=== PATIENT | female | born 1985 | race Caucasian/White ===

== ENCOUNTER 2019-12-12 09:59 | Outpatient (REF) | payer OTHER, SELFPAY ==
[2019-12-17 06:52] LABS: HPV mRNA E6/E7 Not Detected (Not Detected)
== END 2019-12-12 10:00 | disposition home or self-care (01) ==
LOC: HO.LNP 09:59
PROVIDERS: Visit Provider Obstetrics & Gynecology
DX: Z01.419 Encounter for gynecological examination (general) (routine) without abnormal findings (principal)
CPT/HCPCS: 87624; 87625; 88142

== ENCOUNTER → 2019-12-21 10:13 | Outpatient (BNVA) | payer OTHER, SELFPAY | PROVIDERS: Visit Provider Obstetrics & Gynecology | DX: Z30.46 Encounter for surveillance of implantable subdermal contraceptive (principal) | CPT/HCPCS: 11982 ==

== ENCOUNTER 2019-12-27 13:30 | Outpatient (REF) | payer OTHER, SELFPAY | END 2019-12-27 13:31 | disposition home or self-care (01) | LOC: HO.LAB 13:30 | PROVIDERS: Visit Provider Internal Medicine | DX: Z20.828 Contact with and (suspected) exposure to other viral communicable diseases (principal) | CPT/HCPCS: 87635 ==

== ENCOUNTER 2020-01-06 13:55 | Outpatient (REF) | payer OTHER, SELFPAY | END 2020-01-06 13:56 | disposition home or self-care (01) | LOC: HO.LAB 13:55 | PROVIDERS: Visit Provider Internal Medicine | DX: Z20.828 Contact with and (suspected) exposure to other viral communicable diseases (principal) | CPT/HCPCS: U0003 ==

== ENCOUNTER → 2020-05-29 15:12 | Outpatient (BNVA) | payer OTHER, SELFPAY | PROVIDERS: PCP Nurse Practitioner; Visit Provider Advanced Practice Midwife ==

== ENCOUNTER → 2020-09-03 10:46 | Outpatient (BNVA) | payer OTHER, SELFPAY | PROVIDERS: Visit Provider Advanced Practice Midwife ==

== ENCOUNTER 2020-12-24 10:19 | Outpatient (REF) | payer OTHER, SELFPAY ==
[2020-12-24 12:42] LABS: Syphilis Screen Nonreactive (Nonreactive)
[2020-12-25 03:27] LABS: CT PCR NOT DETECTED (Not Detect.); NG PCR NOT DETECTED (Not Detect.)
[2020-12-25 04:29] LABS: HIV AB/AG Nonreactive (Nonreactive); ~HepC Num1 0.07 S/CO (0.00-0.79); ~Hepatitis C Antibody Nonreactive (Nonreactive)
[2020-12-25 04:38] LABS: HBc Num1 0.11 S/CO (0.00-0.79); Hepatitis B Core Antibody Nonreactive (Nonreactive)
[2020-12-25 11:38] LABS: BV Int Neg Control Negative (Negative); BV Int Pos Control Positive (Positive)
== END 2020-12-24 10:20 | disposition home or self-care (01) ==
LOC: HO.LAB 10:19
PROVIDERS: Visit Provider Advanced Practice Midwife
DX: Z30.41 Encounter for surveillance of contraceptive pills (principal); N89.8 Other specified noninflammatory disorders of vagina; Z20.2 Contact with and (suspected) exposure to infections with a predominantly sexual mode of transmission
CPT/HCPCS: 36415; 86704; 86780; 86803; 87389; 87480; 87491; 87510; 87591; 87660

== ENCOUNTER → 2021-03-25 10:02 | Outpatient (BNVA) | payer OTHER, SELFPAY | PROVIDERS: Visit Provider Advanced Practice Midwife ==

== ENCOUNTER 2021-12-30 10:45 | Outpatient (REF) | payer OTHER, SELFPAY ==
[2021-12-30 13:53] LABS: CT PCR NOT DETECTED (Not Detect.); NG PCR NOT DETECTED (Not Detect.)
[2021-12-31 12:23] LABS: BV Int Neg Control Negative (Negative); BV Int Pos Control Positive (Positive)
== END 2021-12-30 10:46 | disposition home or self-care (01) ==
LOC: HO.LNP 10:45
PROVIDERS: Visit Provider Advanced Practice Midwife
DX: Z11.3 Encounter for screening for infections with a predominantly sexual mode of transmission (principal); Z11.8 Encounter for screening for other infectious and parasitic diseases
CPT/HCPCS: 87480; 87491; 87510; 87591; 87660

== ENCOUNTER → 2022-04-07 11:36 | Outpatient (BNVA) | payer OTHER, SELFPAY | PROVIDERS: Visit Provider Advanced Practice Midwife | DX: Z13.89 Encounter for screening for other disorder (principal) ==

== ENCOUNTER → 2022-06-25 08:25 | Outpatient (BNVA) | payer OTHER, SELFPAY | PROVIDERS: Visit Provider Advanced Practice Midwife | DX: Z13.89 Encounter for screening for other disorder (principal) ==

== ENCOUNTER 2023-03-06 14:30 | Outpatient (AMB) | payer OTHER, SELFPAY ==
[2023-03-06 14:51] VITALS: BP 120/70; BMI 25.7
--- NOTE | 2023-03-06 14:51 | A.OFFVIS_ITS ---
Intake Vital Signs 03/06/23 14:51 Height 5 ft 4 in Weight 150 lb BMI 25.7 BP 120/70 Intake Visit Reasons: [facility] APPRAISER annual exam Shank Paperer Required: No Information Interpreted: non-clinical & clinical Commissary Steward: Commissary Steward Present (Abeba Samson CARLOS) Accompanied by: Self / Same As Patient Allergies peanut Allergy (Severe, Verified 03/06/23 14:59) Difficulty Swallowing tree nut Allergy (Intermediate, Verified 03/06/23 14:59) Nausea apple [APPLES] Allergy (Unknown, Verified 03/06/23 14:59) ITCHY THROAT cassia [CASSIA] Allergy (Unknown, Verified 03/06/23 14:59) RASH shellfish derived Allergy (Unknown, Verified 03/06/23 14:59) Unknown DAIRY PRODUCTS Allergy (Unknown, Uncoded 03/06/23 14:59) DIARRHEA Is last menstrual period known: Yes Last menstrual period: 02/09/23 HPI HPI Comments History of Present Illness Details She is a premenopausal woman presenting for annual examination. Doing well with no concerns. She tries to eat healthy and stays active with exercise. Taking a multivitamin. She is open to a future . Has an October planned. Regular monthly menses. Currently is sexually active. She denies vaginal itching and irritation. STI screening offered; she declines. Denies family history of breast, ovarian or colon cancer. Last pap smear 2019, negative. 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 Sexual orientation: Straight/Heterosexual Gender identity: Female Female Reproductive History Menstrual Age of Menarche: 9 Date of last menstrual period: 02/09/23 control method: none Total pregnancies: 0 Date of last pap smear: 12/14/19 Review of Systems Const All systems reviewed & are unremarkable except as noted in HPI and below Reports as per HPI Eyes Reports no additional complaints ENT Reports no additional complaints Card Reports no additional complaints Resp Reports no additional complaints GI Reports as per HPI and Reports no additional complaints Reports as per HPI Musc Reports no additional complaints Skin/Breast Reports as per HPI Neuro Reports no additional complaints Psych Reports no additional complaints Endo Reports no additional complaints Gentry/Lymph Reports no additional complaints Aller/Immun Reports no additional complaints Physical Exam Vital Signs: Last Vital Signs BP 120/70 03/06/23 14:51 BMI result Body Mass Index 25.7 Const General: cooperative, healthy appearing, no acute distress, well developed and alert Orientation/consciousness: patient oriented x3 HEENT Head: Yes normal to inspection Eyes General: appearance normal, both eyes and all related structures Neck Neck: Yes normal visual inspection Thyroid: Thyroid normal Chest Chest palpation & inspection: normal inspection of the chest and other (no puckering, dimpling, peau de orange, retraction, discharge, masses) Breast/axilla inspection: normal inspection of the breasts Breast/axilla palpation: normal palpation of the breasts Resp Effort & Inspection: normal respiratory effort GI Inspection: Yes normal to inspection Palpation (GI): Soft to palpation Rectal Exam - Female: deferred General: Yes bladder normal to palpation External Female Exam: normal external appearance and normal appearance of the urethra Speculum Exam - Vagina: normal appearance of the vagina, normal palpation, normal vaginal discharge, abnormal vaginal discharge and vaginal bleeding (Small amount) Speculum Exam - Cervix: normal appearance of the cervix and normal palpation Bimanual exam- vagina & uterus: normal bimanual exam, normal palpation, uterine size normal, bladder normal to palpation, normal palpation and non-tender Bimanual Exam- Adnexa, other: no masses OB/external & speculum: vaginal bleeding (Small amount) Skin General skin exam: no rashes or lesions noted Rashes: no rashes Neuro General: patient oriented x3 Cognition (Neuro): normal cognition Extrem General: Yes normal to inspection Psych Attitude: cooperative Thought process: Normal thought process present Assessment & Plan Assessment & Plan (1) Encounter for well woman exam with routine gynecological exam: Code(s): Z01.419 - Encounter for gynecological examination (general) (routine) without abnormal findings Plan Discussed: Current recommendations for pap smears per ASCCP guidelines. Breast awareness and periodic breast exams. Maintain a healthy lifestyle including a well balanced diet and routine exercise. Continue with multivitamins for the benefit of folic acid. If missed menses do a home test and follow-up in the office for care. All of her questions and concerns were addressed to the best of my ability. RTO in one year for annual irrigator gravity flow examination. This note is constructed using voice recognition software. While every effort has been made to ensure accuracy, optometric tech errors may have been included. Coding Level of Care Code Est Pt Prev Care 18-39y(30331) Diagnoses Encounter for well woman exam with routine gynecological exam Z01.419
== END 2023-03-06 15:24 | disposition home or self-care (01) ==
LOC: HO.HWS 14:30
PROVIDERS: Visit Provider Advanced Practice Midwife
DX: Z01.419 Encounter for gynecological examination (general) (routine) without abnormal findings (principal)
CPT/HCPCS: 99395

== ENCOUNTER → 2023-03-06 14:30 | Outpatient (BNVA) | payer OTHER, SELFPAY | PROVIDERS: Visit Provider Advanced Practice Midwife ==

== ENCOUNTER 2024-07-28 14:03 | Outpatient (AMB) | payer OTHER, SELFPAY ==
--- NOTE | 2024-07-28 14:07 | A.OFFVIS_ITS ---
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 Casting Machine Tender Required: No Allergies peanut Allergy (Severe, Verified 07/28/24 14:11) Difficulty Swallowing tree nut Allergy (Intermediate, Verified 07/28/24 14:11) Nausea apple [APPLES] Allergy (Unknown, Verified 07/28/24 14:11) ITCHY THROAT cassia [CASSIA] Allergy (Unknown, Verified 07/28/24 14:11) RASH shellfish derived Allergy (Unknown, Verified 07/28/24 14:11) Unknown DAIRY PRODUCTS Allergy (Unknown, Uncoded 07/28/24 14:11) DIARRHEA Medication List - Last Reconciled 07/28/24 by Jennifer Guido LPN dextroamphetamine-amphetamine 20 mg (Adderall) 20 mg PO DAILY fluoxetine 30 mg PO DAILY trazodone 25 mg PO DAILY Is last menstrual period known: Yes Last menstrual period: 07/14/24 Post menopausal: No Patient : No Do you need a note to return to daycare/school/sports/work: No HPI Comments Details: She is a premenopausal woman presenting for annual examination. Doing well with artist blacksmith concerns: She desires STDs testing, vaginal burning at introitus, hx. of IC. Regular monthly menses. Currently is sexually active, new partner, using withdrawal method. Desires to restart her control. History of white coat syndrome. Prefers not to have menses and wants to have continuous cycling p ack. She denies any contraindications to control such as: migraines with aura, history of DVT or pulmonary emboli, high blood pressure, liver disease, thrombolic disorders, Lupus, +EZEQUIEL, breast cancer, or smoking. She tries to eat healthy, admits to having a sweet tooth, no regular exercise. Denies family history of ovarian or colon cancer. FH breast cancer-mother, BRCA negative. Last pap smear 2019, negative. 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 Sexual orientation: Straight/Heterosexual Gender identity: Female Female Reproductive History Menstrual Age of Menarche: 9 Duration of menses: 3-5 days Date of last menstrual period: 07/14/24 control method: none Total pregnancies: 0 Date of last pap smear: 12/12/19 History of abnormal pap smear: Yes (2001 ASCUS/ pos HPV) History of STI: Yes (HPV) Review of Systems Const All systems reviewed & are unremarkable except as noted in HPI and below Reports as per HPI Eyes Reports no additional complaints ENT Reports no additional complaints Card Reports no additional complaints Resp Reports no additional complaints GI Reports as per HPI and Reports no additional complaints Reports as per HPI Musc Reports no additional complaints Skin/Breast Reports as per HPI Neuro Reports no additional complaints Psych Reports no additional complaints Endo Reports no additional complaints Gentry/Lymph Reports no additional complaints Aller/Immun Reports no additional complaints Physical Exam Vital Signs: Last Vital Signs BP 126/66 07/28/24 14:08 BMI result Body Mass Index 23.1 Const General: cooperative, healthy appearing, no acute distress, well developed and alert Orientation/consciousness: patient oriented x3 HEENT Head: Yes normal to inspection Eyes General: appearance normal, both eyes and all related structures Neck Neck: Yes normal visual inspection Thyroid: Thyroid normal Chest Chest palpation & inspection: normal inspection of the chest and other (no pucke ring, dimpling, peau de orange, retraction, discharge, masses) Breast/axilla inspection: normal inspection of the breasts Breast/axilla palpation: normal palpation of the breasts Resp Effort & Inspection: normal respiratory effort GI Inspection: Yes normal to inspection Palpation (GI): Soft to palpation Rectal Exam - Female: deferred General: Yes bladder normal to palpation External Female Exam: normal external appearance and normal appearance of the urethra Speculum Exam - Vagina: normal appearance of the vagina, normal palpation and normal vaginal discharge Speculum Exam - Cervix: normal appearance of the cervix, normal palpation and Other cervical findings present (Bled slightly with Pap) Bimanual exam- vagina & uterus: normal bimanual exam, normal palpation, uterine size normal, bladder normal to palpation, normal palpation and non-tender Bimanual Exam- Adnexa, other: no masses Skin General skin exam: no rashes or lesions noted Rashes: no rashes Neuro General: patient oriented x3 Cognition (Neuro): normal cognition Extrem General: Yes normal to inspection Psych Attitude: cooperative Thought process: Normal thought process present Assessment & Plan Assessment & Plan (1) control counseling: Code(s): Z30.09 - Encounter for other general counseling and advice on contraception Category: Medical Plan: control hormone use warnings: go to ER if and loss of vision, blindness, severe headache, chest pain or difficulty breathing, severe abdominal pain, or any pain or swelling in an extremity. Counseled on restarting control pills, use, timing, with food, report any GI upset or allergies. Talk with pharmacy regarding concerns with allergies. Home monitoring with blood pressure cuff due to history of white coat syndrome, advised to bring in recordings at her next visit. The patient expressed understanding and agreement with the plan of care. All of her questions and concerns were addressed to the best of my ability. Recheck BP in 2-1/2 months once starting pill. (2) Encounter for routine gynecological examination with Papanicolaou smear of cervix: Code(s): Z01.419 - Encounter for gynecological examination (general) (routine) without abnormal findings Category: Medical Plan Discussed: Current recommendations for pap smears per ASCCP guidelines. Pap smear, GC chlamydia and BV panel obtained await results for plan of care. Breast awareness and periodic breast exams. Mammogram ordered. Maintain a healthy lifestyle including a well balanced diet and routine exercise. Patient verbalizes understanding and agrees to the plan of care. She was given opportunity to ask questions and all questions were answered to the best of my ability. RTO in one year for annual artist blacksmith examination. This note is constructed using voice recognition software. While every effort has been made to ensure accuracy, laborer poultry hatchery errors may have been included. Orders: Orders Pap Smear Today Z01.419 - Encounter for gynecological examination (general) (routine) without abnormal findings CT NG by PCR Today Z11.3 - Encounter for screening for infections with a pred ominantly sexual mode of transmission HIV Ab/Ag Today Z20.2 - Contact with and (suspected) exposure to infections with a predominantly sexual mode of transmission MM tomosynthesis screening BI 12/05/24 Z12.31 - Encounter for screening mammogram for malignant neoplasm of breast Bacterial Vaginosis Panel Today Z11.3 - Encounter for screening for infections with a predominantly sexual mode of transmission Hepatitis C Antibody Reflex Today Z20.2 - Contact with and (suspected) exposure to infections with a predominantly sexual mode of transmission Hepatitis B Core Antibody Today Z20.2 - Contact with and (suspected) exposure to infections with a predominantly sexual mode of transmission Syphilis Screen Today Z20.2 - Contact with and (suspected) exposure to infections with a predominantly sexual mode of transmission Medications: New levonorgestrel-ethinyl estrad 0.15 mg-30 mcg (91) (Swapnaa) 1 tab PO DAILY 91 ea 0RF Coding Level of Care Code Est Pt Prev Care 18-39y(50714) Diagnoses control counseling Z30.09 Encounter for routine gynecological examination with Papanicolaou smear of cervix Z01.419
[2024-07-28 14:08] VITALS: BP 126/66; BMI 23.1
== END 2024-07-28 15:03 | disposition home or self-care (01) ==
LOC: HO.HWS 14:03
PROVIDERS: Visit Provider Advanced Practice Midwife
DX: Z01.419 Encounter for gynecological examination (general) (routine) without abnormal findings (principal)
CPT/HCPCS: 99395; 99459

== ENCOUNTER 2024-07-28 14:03 | Outpatient (REF) | payer OTHER, SELFPAY ==
[2024-07-29 03:50] LABS: Syphilis Screen Nonreactive (Nonreactive)
[2024-07-29 03:53] LABS: HBc Num1 0.13 S/CO (0.00-0.79); HIV AB/AG Nonreactive (Nonreactive); HIV Num 1 0.06 S/CO (0.00-0.99); Hepatitis B Core Antibody Nonreactive (Nonreactive); ~HepC Num1 0.09 S/CO (0.00-0.79); ~Hepatitis C Antibody Nonreactive (Nonreactive)
[2024-07-29 04:09] LABS: CT PCR NOT DETECTED (Not Detect.); NG PCR NOT DETECTED (Not Detect.)
[2024-07-29 11:29] LABS: Bacterial Vaginosis PCR NEGATIVE (Negative); Candida Group PCR NOT DETECTED (Not Detect); Candida glab krusei PCR NOT DETECTED (Not Detect); Trichomonas vaginalis PCR NOT DETECTED (Not Detect)
[2024-08-03 14:43] LABS: HPV Genotype 16 Positive (Negative); HPV Genotype 18 Negative (Negative); HPV High Risk Positive (Negative)
== END 2024-07-28 14:04 | disposition home or self-care (01) ==
LOC: HO.LNP 14:03
PROVIDERS: Visit Provider Advanced Practice Midwife
DX: Z01.419 Encounter for gynecological examination (general) (routine) without abnormal findings (principal); Z20.2 Contact with and (suspected) exposure to infections with a predominantly sexual mode of transmission
CPT/HCPCS: 81515; 86704; 86780; 86803; 87389; 87491; 87591; 87626; 88175

== ENCOUNTER 2024-07-28 14:58 | Outpatient (REF) | payer OTHER, SELFPAY | END 2024-07-28 14:59 | disposition home or self-care (01) | LOC: HO.LAB 14:58 | PROVIDERS: Visit Provider Advanced Practice Midwife | DX: Z13.89 Encounter for screening for other disorder (principal) ==

== ENCOUNTER 2024-08-11 15:00 | Outpatient (AMB) | payer OTHER, SELFPAY ==
[2024-08-11 15:12] VITALS: BP 126/64; BMI 22.7
--- NOTE | 2024-08-11 15:12 | MHC.OFFVIS ---
Vital Signs 08/11/24 15:12 Height 5 ft 4 in Weight 132 lb BMI 22.7 BP 126/64 Intake Visit Reasons: Colposcopy Allergies peanut Allergy (Severe, Verified 07/28/24 14:11) Difficulty Swallowing tree nut Allergy (Intermediate, Verified 07/28/24 14:11) Nausea apple [APPLES] Allergy (Unknown, Verified 07/28/24 14:11) ITCHY THROAT cassia [CASSIA] Allergy (Unknown, Verified 07/28/24 14:11) RASH shellfish derived Allergy (Unknown, Verified 07/28/24 14:11) Unknown DAIRY PRODUCTS Allergy (Unknown, Uncoded 07/28/24 14:11) DIARRHEA HPI Comments Details: Presenting with abnormal cervical screening showing the following: Unsatisfactory. Unsatisfactory for evaluation, specimen processed and examined (following reprocessing with acid wash procedure), but unsatisfactory for evaluation of epithelial abnormality because of scant squamous epithelial component. 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 Sexual orientation: Straight/Heterosexual Gender identity: Female Female Reproductive History Menstrual Age of Menarche: 9 Review of Systems Const All systems reviewed & are unremarkable except as noted in HPI and below Reports as per HPI and Reports no additional complaints GI Reports no additional complaints Reports no additional complaints Physical Exam Vital Signs: Last Vital Signs BP 126/64 08/11/24 15:12 BMI result Body Mass Index 22.7 Office Procedures Colposcopy Colposcopy: Pre-Procedure Counseling: Before beginning the procedure, I conducted comprehensive counseling with the patient. We thoroughly discussed the procedure itself, including its details, alternatives, and all associated risks. This included but not limited to the following complications such as bleeding, infection, and injury to the vagina, bladder, and vessels, as well as the potential need for transfusion with all its associated risks. Subsequently, the patient sign the consent. Pap smear result: LSIL. Urine test in office = Negative Procedure: During the procedure, the following steps were performed: A speculum was inserted, and acetic acid was applied. Colposcopy was conducted, allowing visualization of the transformation zone. Acetowhite lesions were identified at the 12+ 6+ 3 o'clock position. Cervical biopsies were obtained from the 12+6+3 o'clock position, followed by an endocervical curettage (ECC). Vaginoscopy of the upper vagina revealed no evidence of aceto-white lesions. Hemostasis was achieved using Monsel solution, and the patient tolerated the procedure well. Post-Procedure Instructions: The patient was advised to promptly contact the office or the after hours answering service or go to the emergency room if experiencing a temperature exceeding 100.4?F, abdominal pain, nausea/vomiting, or bleeding. Additionally, the patient was instructed to abstain from vaginal intercourse and bathtub use. The patient confirmed understanding of these instructions. Discharge Instructions: The patient was instructed to schedule a follow-up appointment in 2 weeks for further evaluation and management. Please note that this note was generated using a voice recognition program, and errors may have occurred during gas generator operator. [id number] of cervix including upper vagina with biopsy and ECC Procedure code (CPT) selection complete Results AMB Test Urine AMB Test Urine Negative Last Edit by Abeba Samson CMA on 08/11/24 15:31 Results Reviewed Results Reviewed: Laboratory Last Values [facility] Clinic Negative 08/11/24 15:30 Assessment & Plan Assessment & Plan (1) Unsatisfactory cervical Papanicolaou smear: Code(s): R87.615 - Unsatisfactory cytologic smear of cervix Category: Medical Plan: Pap smear repeated (2) Human papillomavirus (HPV) type 16 DNA detected in cervical specimen: Code(s): R87.810 - Cervical high risk human papillomavirus (HPV) DNA test positive Category: Medical Plan: Discussed with the patient the result of HPV 16 positive, its significance, risk of progression, persistence, and regression. the false positive/negative rate of a Pap smear as a screening test in detecting cervical cancer and the indication for a diagnostic test -colposcopy, biopsy, endocervical curettage. The patient verbalized understanding and agreed with the plan, all questions answered. Colposcopy, biopsy /ECC done, see procedure note Orders: Orders AMB Colposcopy Today R87.810 - Cervical high risk human papillomavirus (HPV) DNA test positive AMB HCG Urine Test Today Z32.02 - Encounter for test, result negative Coding Level of Care Code Procedure Only Diagnoses Unsatisfactory cervical Papanicolaou smear R87.615 Human papillomavirus (HPV) type 16 DNA detected in cervical specimen R87.810 CPT Codes Colposcopy - CPT: 62482-[id number] of cervix including upper vagina with biopsy and ECC ([id number])
== END 2024-08-11 15:47 | disposition home or self-care (01) ==
LOC: HO.HWS 15:01
PROVIDERS: Visit Provider Obstetrics & Gynecology
DX: R87.615 Unsatisfactory cytologic smear of cervix (principal); R87.810 Cervical high risk human papillomavirus (HPV) DNA test positive; Z32.02 Encounter for pregnancy test, result negative
CPT/HCPCS: 57454

== ENCOUNTER 2024-08-11 15:00 | Outpatient (REF) | payer OTHER, SELFPAY | END 2024-08-11 15:01 | disposition home or self-care (01) | LOC: HO.LNP 15:00 | PROVIDERS: Visit Provider Obstetrics & Gynecology | DX: R87.615 Unsatisfactory cytologic smear of cervix (principal); R87.810 Cervical high risk human papillomavirus (HPV) DNA test positive | CPT/HCPCS: 57454; 81025; 88175; 88305 ==

== ENCOUNTER 2024-10-04 12:41 | Outpatient (AMB) | payer OTHER, SELFPAY ==
--- NOTE | 2024-10-04 12:50 | MHC.OFFVIS ---
Vital Signs 10/04/24 12:52 Height 5 ft 4 in Weight 144 lb BMI 24.7 BP 124/76 Blood Pressure Location Rt brachial Position Sitting Intake Visit Reasons: 2 month pill check Information Interpreted: non-clinical & clinical Mds Coordinator: Mds Coordinator Present Accompanied by: Self / Same As Patient Allergies peanut Allergy (Severe, Verified 10/04/24 12:55) Difficulty Swallowing tree nut Allergy (Intermediate, Verified 10/04/24 12:55) Nausea apple (APPLES) Allergy (Unknown, Verified 10/04/24 12:55) ITCHY THROAT cassia (CASSIA) Allergy (Unknown, Verified 10/04/24 12:55) RASH shellfish derived Allergy (Unknown, Verified 10/04/24 12:55) Unknown DAIRY PRODUCTS Allergy (Unknown, Uncoded 10/04/24 12:55) DIARRHEA Medication List - Last Reconciled 10/04/24 by Evelina Ogden LPN dextroamphetamine-amphetamine 20 mg (Adderall) 20 mg PO DAILY fluoxetine 30 mg PO DAILY levonorgestrel-ethinyl estrad 0.15 mg-30 mcg (91) (Jolessa) 1 tab PO DAILY trazodone 25 mg PO DAILY Is last menstrual period known: Yes (started bleeding 09/23 till today 10/04) Last menstrual period: 09/23/24 Post menopausal: No Patient : No HPI Comments Details: Patient is here today for her pill check she reports an episode of 11 days of breakthrough bleeding, denies any missed or late pills or other illnesses, new medication. She reports having to wait for her colposcopy results in the fall from her August appointment and would like a results today. History of unsatisfactory Pap, repeat Pap was negative same-day biopsies revealed MELLY 1. History of positive HPV. She denies any contraindications to control such as: migraines with aura, history of DVT or pulmonary emboli, high blood pressure, liver disease, thrombolic disorders, Lupus, +EZEQUIEL, breast cancer, or smoking. 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 Sexual orientation: Straight/Heterosexual Gender identity: Female Female Reproductive History Menstrual Age of Menarche: 9 Date of last menstrual period: 09/23/24 control method: pills Total pregnancies: 0 Number of Living Children: 0 Review of Systems Const All systems reviewed & are unremarkable except as noted in HPI and below Endo Reports no additional complaints Physical Exam Vital Signs: Last Vital Signs BP 124/76 10/04/24 12:52 BMI result Body Mass Index 24.7 Const General: cooperative, healthy appearing and no acute distress Psych Appearance: well kempt Attitude: cooperative Thought process: Normal thought process present Results AMB Test Urine AMB Test Urine Negative Last Edit by Evelina Ogden LPN on 10/04/24 13:02 Results Reviewed Results Reviewed: Laboratory Last Values Tst Clinic Negative 10/04/24 13:01 Surgical Pathology [id number] Name: Mayelin Camargo Age/Sex: 38/F Attending: Sergey Barragan MD : 1985 Submitted by: Sergey Barragan MD Copies to: MR #: [id number] Status: DEP REF Collected: 08/11/24 Location: [facility] Received: 08/12/24 Diagnosis A. Endocervix, curettage: - Low-grade squamous intraepithelial lesion (MELLY 1). - Endocervical epithelium within normal limits. B. Cervix, 3 o'clock, biopsy: - Low-grade squamous intraepithelial lesion (MELLY 1). - Endocervical epithelium within normal limits. C. Cervix, 6 o'clock, biopsy: - Low-grade squamous intraepithelial lesion (MELLY 1). - Endocervical epithelium within normal limits. D. Cervix, 12 o'clock, biopsy: - Low-grade squamous intraepithelial lesion (MELLY 1). - Endocervical epithelium within normal limits. COMMENT: The patient's current Pap is pending at the time of this report. Clinical History HPV in female, HPV type 16 DNA detected in cervical specimen, unsatisfactory cervical Papanicolaou smear Microscopic Description A-D. Microscopic sections reviewed. Material Received A. ECC B. Cx bx 3 o'clock C. Cx bx 6 o'clock D. Cx bx 12 o'clock Gross Description Received in 4 parts. A. Received in formalin labeled ?ECC? are minute fragments of almanza-white soft tissue and mucus forming an aggregate measuring 0.5 x 0.5 x 0.1 cm which is wrapped in lens paper and entirely submitted for microscopic examination, multiple pieces in cassette A. Patient: Mayelin Camargo Age/Sex: 38/F MR#: [id number] Page 1 of 2 Surgical Pathology [id number] B. Received in formalin labeled ?CX Bx 3? is a fragment of rubbery, white tissue measuring 0.6 cm in greatest dimension which is wrapped in lens paper and entirely submitted for microscopic examination, 1 piece in cassette B. C. Received in formalin labeled ?CX Bx 6? are 2 fragments of rubbery, white tissue measuring 0.3 and 0.3 cm in greatest dimension which are wrapped in lens paper and entirely submitted for microscopic examination, 2 pieces in cassette C. D. Received in formalin labeled ?CX Bx 12? is a fragment of rubbery, almanza-white tissue measuring 0.6 cm in greatest dimension which is wrapped in lens paper and entirely submitted for microscopic examination, 1 piece in cassette D. ([facility]) NOTE: Unless otherwise stated, all tissue is formalin-fixed and paraffin-embedded. Some or all of the immunohistochemical tests reported herein may have been developed and their performance characteristics determined by [facility]. They have not been cleared or approved by the U.S. Food and Drug Administration (FDA). However, the FDA has determined that such clearance or approval is not necessary. This laboratory is certified under the Clinical Laboratory Improvement Amendments of 1988 (CLIA) as qualified to perform high complexity clinical laboratory testing. Electronically Signed By: Alexis Bagley MD 08/15/24 0153 Patient: Mayelin Camargo Age/Sex: 38/F MR#: [id number] Page 2 of 2 Assessment & Plan Assessment & Plan (1) Surveillance for control, oral contraceptives: Code(s): Z30.41 - Encounter for surveillance of contraceptive pills Plan: Continue with OCPs report back to office if continues to have breakthrough bleeding. This can be common with the extended pill packs. UPT is negative today. Repeat if indicated. control hormone use warnings: go to ER if and loss of vision, blindness, severe headache, chest pain or difficulty breathing, severe abdominal pain, or any pain or swelling in an extremity. Rx for control sent in. Mammogram is scheduled for December 2024. The patient expressed understanding and agreement with the plan of care. All of her questions and concerns were addressed to the best of my ability. (2) Encounter to discuss test results: Code(s): Z71.2 - Person consulting for explanation of examination or test findings Plan Discussed colposcopy results per patient's request. MELLY 1 present on all biopsies, discussed progression and regression of HPV changes indicated with abnormal cellular findings. Plan repeat Pap at next annual exam July 2024. The patient expressed understanding and agreement with the plan of care. All of her questions and concerns were addressed to the best of my ability. This note is constructed using voice recognition software. While every effort has been made to ensure accuracy, college sports coach errors may have been included. Orders: Orders AMB HCG Urine Test Today Z32.02 - Encounter for test, result negative Medications: Refilled levonorgestrel-ethinyl estrad 0.15 mg-30 mcg (91) (Tamanna) 1 tab PO DAILY 91 ea 3RF Coding Level of Care Code Est Pt Level 3 (82583) Diagnoses Surveillance for control, oral contraceptives Z30.41 Encounter to discuss test results Z71.2
[2024-10-04 12:52] VITALS: BP 124/76; BMI 24.7
--- OUTSIDE RECORDS SUMMARY | 2024-10-04 13:26 | XMS_ITS | Clinical Summary ---
Author Organization [facility] Address [address] [place] [address] Phone Care Team Providers Care News Department Intern Name Role Phone Goldie Heaton NP Primary Care Provider [phone] Allergies Active Allergy Reactions Criticality Noted Date Comments Apple 07/07/2021 Nlvklcw-Sicrcrp-Tyyfp-Ritika 07/07 Lavender 07/07/2021 Peanut 06/11/2023 Tree Nut 07/07/2021 Medications FLUoxetine (PROZAC) 20 MG capsule Take 30 mg by mouth daily. Active traZODone (DESYREL) 50 MG tablet Take 50 mg by mouth nightly at bedtime. Active buPROPion (WELLBUTRIN SR) 100 MG SR 12 hr tablet 03/10/2023 Active pentosan polysulfate (ELMIRON) 100 mg capsule Take 100 mg by mouth 3 (three) times a day before meals. Active Active Problems No known active problems Social History Tobacco Use Types Packs/Day Years Used Date Smoking Tobacco: Never Passive Smoke Exposure: Never Smokeless Tobacco: Never Tobacco Cessation:Counseling Given: Not Answered Alcohol Use Standard Drinks/Week Comments Not Currently 0 (1 standard drink = 0.6 oz pur e alcohol) Education Answer Date Recorded Are you interested in more education? Not on cary e 07/04/2022 Are you concerned about learning? Not on file 07/04/2022 No 07/04/2022 No 07/04/2022 Digital Access Answer Date Recorded No 08/04/2022 No 08/04/2022 Reliable internet access at home? Not on file 08/04/2022 Device with a working camera? Not on file Intimate Partner Violence Answer Date R ecorded Are you denied basic needs s uch as food, clothing, or medical care? No 06/11/2023 In the past 12 months have y ou been in a relationship with a person who hurts, threatens, or tries to control you? No 06/11/2023 Are you denied basic needs s uch as food, clothing, or medical care? No 06/11/2023 In the past 12 months have y ou been in a relationship with a person who hurts, threatens, or tries to control you? No 06/11/2023 Comments Unknown Sex and Gender Information Value Date Recorded Sex Assigned at Female 07/07/2021 10:52 AM EDT Legal Sex Female 9:14 PM EDT Gender Identity Female 07/07/2021 10:52 AM EDT Sexual Orientation Not on file Last Filed Vital Signs Vital Sign Reading Time Taken Comments Blood Pressure 126/82 06/11/2023 9:52 PM EDT Pulse 78 06/11/2023 9:52 PM EDT Temperature 36.8 C (98.3 F) 06/11/2023 9:52 PM EDT Respiratory Rate 18 06/11/2023 9:52 PM EDT Oxygen Saturation 100% 06/11/2023 9:52 PM EDT Inhaled Oxygen Concentration - - Weight 63.5 kg (140 lb) 09/04/2021 8:15 AM EDT Height 162.6 cm (5' 4 ) 09/04/2021 8:15 AM EDT Body Mass Index 24.03 09/04/2021 8:15 AM EDT Plan of Treatment Health Maintenance Due Date Last Done Comments DEPRESSION SCREENING 1996 HEPATITIS C SCREENING 2002 HIV ONE-TIME SCREENING (18-6 5 YEARS) 2002 PAP SMEAR 2005 COVID-19 VACCINE (2023-2 5 season) 2023 10/27/2020 Adult Td,Tdap Booster 10/21/2025 10/22/2015 SMOKING STATUS SCREENING (On ce After 26 Yrs) Completed 06/11/2023 HEPATITIS A VACCINES Aged Out No long er eligible based on patient's age to complete this topic HIB VACCINES Aged Out No longer eligi ble based on patient's age to complete this topic MENINGOCOCCAL VACCINES (ACWY) Aged Out No longer eligible based on patient's age to complete this topic MENINGOCOCCAL VACCINES (B) Aged Out N o longer eligible based on patient's age to complete this topic PNEUMOCOCCAL VACCINES (0-49 years) Aged Out No longer eligible based on patient's age to complete this topic Medical Devices Not on file Insurance [address] [place], [place] [address] [place] [address] [facility] [address] [place] [address] [place] [address] [facility] [place] [address] [place] [id number] Care Teams News Department Intern Relationship Specialty Start Date End Date Goldie Heaton NP [address] [place] [id number] [email or web address] acquired by [email or web address] PCP - General 05/15/20 Additional Source Comments The information contained in this document represents components of the legal health record. It is not the complete legal health record.[facility]
--- OUTSIDE RECORDS SUMMARY | 2024-10-04 13:26 | XMS_ITS | Patient Health Record ---
Author Organization [facility] Address [address] [place] [id number] Care Team Providers Care Track Subway Repair Supervisor Name Role Phone Chase Guerrero Unavailable [phone] Reason For Referral No Information Plan Of Treatment No Information
== END 2024-10-04 13:48 | disposition home or self-care (01) ==
LOC: HO.HWS 12:42
PROVIDERS: Visit Provider Advanced Practice Midwife
DX: Z30.41 Encounter for surveillance of contraceptive pills (principal); Z71.2 Person consulting for explanation of examination or test findings; Z32.02 Encounter for pregnancy test, result negative
CPT/HCPCS: 99213

== ENCOUNTER → 2024-10-04 12:41 | Outpatient (BNVA) | payer OTHER, SELFPAY | PROVIDERS: Visit Provider Advanced Practice Midwife | DX: Z32.02 Encounter for pregnancy test, result negative (principal) | CPT/HCPCS: 81025 ==

== ENCOUNTER 2024-12-17 10:13 | Outpatient (REF) | payer OTHER, SELFPAY ==
--- OUTSIDE RECORDS SUMMARY | 2024-12-17 10:16 | XMS_ITS | Patient Health Record ---
Author Organization [facility] Address [address] [place] [phone] Care Team Providers Care Faculty Physician Name Role Phone Chase Guerrero Unavailable [phone] Reason For Referral No Information Plan Of Treatment No Information
--- OUTSIDE RECORDS SUMMARY | 2024-12-17 10:16 | XMS_ITS | Clinical Summary ---
Author Organization [facility] Address [address] [place] [address] Phone Care Team Providers Care Chenille Machine Operator Name Role Phone JobMarymari Cortés LOADER HELPER SORTING YARD Primary Care Provider [phone] Allergies Active Allergy Reactions Criticality Noted Date Comments Apple 07/07/2021 Vuyftjj-Utufeso-Ctdun-Ritika 07/07 Lavender 07/07/2021 Peanut 06/11/2023 Tree Nut [...] Active Active Problems No known active problems Encounters Date Type Department Care Team Description 11/28/2024 2:15 AM EDT - 11/28/2024 4:56 AM EDT Emergency [facility] [address] [place] [address] Travis Cui, DO Discharge Disposition: Home or Self Care from Last 3 Months Social History Tobacco Use Types Packs/Day Years [...] as food, clothing, or medical care? No 11/27/2024 In the past 12 months have y ou been in a relationship with a person who hurts, threatens, or tries to control you? No 11/27/2024 Are you denied basic needs s uch as food, clothing, or medical care? No 11/27/2024 In the past 12 months have y ou been in a relationship with a person who hurts, threatens, or tries to control you? No 11/27/2024 Comments Unknown Sex and Gender Information Value Date Recorded Sex Assigned at Female 07/07/2021 10:52 AM EDT Legal Sex Female 9:14 PM EDT Gender Identity Female 07/07/2021 10:52 AM EDT Sexual Orientation Don't know 11/28/2024 2: 27 AM EDT Last Filed Vital Signs Vital Sign Reading Time Taken Comments Blood Pressure 141/86 11/28/2024 4:15 AM EDT Pulse 69 11/27/2024 11:54 PM EDT Temperature 37.1 C (98.8 F) 11/28/2024 4:15 AM EDT Respiratory Rate 16 11/27/2024 11:54 PM EDT Oxygen Saturation 100% 11/28/2024 4:15 AM EDT Inhaled Oxygen Concentration - - Weight 63.5 kg (140 lb) 11/27/2024 11:54 PM EDT Height 162.6 cm (5' 4 ) 11/27/2024 11:54 PM EDT Body Mass Index 24.03 11/27/2024 11:54 PM EDT Plan of Treatment Health Maintenance Due Date Last Done Comments DEPRESSION SCREENING 1996 HEPATITIS C SCREENING 2002 HIV ONE-TIME SCREENING (18-6 5 YEARS) 2002 PAP SMEAR 2005 INFLUENZA VACCINE (#1) 2024 COVID-19 VACCINE (2024-2 6 season) 2024 10/27/2020 MAMMOGRAM 2024 Adult Td,Tdap Booster 10/21/2025 10/22/2015 SMOKING STATUS SCREENING (On ce After 26 Yrs) Completed 11/27/2024 HEPATITIS A VACCINES Aged Out No long [...] topic Medical Devices Not on file Insurance ([place]) [address] [facility] [place], [place] [address] [facility] [place] [place] [address] [place] [address] [facility] H[facility] INSURANCE Care Teams Chenille Machine Operator Relationship Specialty Start Date End Date Maria Fernanda Kiaser NP [address] [place] [address] PCP - General Nurse Practitioner 11/27/24 Additional Source Comments The information contained in this document represents components of the legal health record. It is not the complete legal health record.[facility]
== END 2024-12-17 10:14 | disposition home or self-care (01) ==
LOC: HO.MAMMO 10:13
PROVIDERS: Visit Provider Advanced Practice Midwife
DX: Z12.31 Encounter for screening mammogram for malignant neoplasm of breast (principal)
CPT/HCPCS: 77063; 77067

== ENCOUNTER → 2024-12-17 10:15 | Outpatient (BNV) | payer OTHER, SELFPAY | PROVIDERS: Visit Provider Radiology Body Imaging | DX: Z12.31 Encounter for screening mammogram for malignant neoplasm of breast (principal) | CPT/HCPCS: 77063; 77067 ==

== ENCOUNTER 2025-01-27 11:34 | Outpatient (AMB) | payer OTHER, SELFPAY ==
--- NOTE | 2025-01-27 11:46 | MHC.OFFVIS ---
Intake Visit Reasons: follow up Allergies peanut Allergy (Severe, Verified 01/27/25 11:51) Difficulty Swallowing tree nut Allergy (Intermediate, Verified 01/27/25 11:51) Nausea apple (APPLES) Allergy (Unknown, Verified 01/27/25 11:51) ITCHY THROAT cassia (CASSIA) Allergy (Unknown, Verified 01/27/25 11:51) RASH shellfish derived Allergy (Unknown, Verified 01/27/25 11:51) Unknown DAIRY PRODUCTS Allergy (Unknown, Uncoded 01/27/25 11:51) DIARRHEA Medication List - Last Reconciled 01/27/25 by Jovana Vigil CNP dextroamphetamine-amphetamine 20 mg (Adderall) 20 mg PO DAILY fluoxetine 30 mg PO DAILY levonorgestrel-ethinyl estrad 0.15 mg-30 mcg (91) (Jolessa) 1 tab PO DAILY sumatriptan succinate take 1 tab at onset of headache; if no relief may repeat 1 tab after at least 2 hrs; PO 30 days topiramate 50 mg PO DAILY trazodone 25 mg PO DAILY HPI Comments Details: 39-year-old right-handed woman with migraines. She had bad migraine on 11/28/2024 and was seen at [facility] ER. She had one bad migraine since then. Sumatriptan as needed helps. She was having some mild headaches almost daily. Pain was all over head, quality was hard to describe, with photophobia, sonophobia, and trouble focusing eyes. She was due for eye exam. She was taking topiramate once a day when she remembered. She was forgetting to take medication about 3 days a week. Sleep was not so good. 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 Sexual orientation: Straight/Heterosexual Gender identity: Female Female Reproductive History Menstrual Age of Menarche: 9 Review of Systems Const Denies chills, Denies daytime sleepiness, Reports difficulty sleeping, Reports fatigue, Denies fever(s), Denies frequent falls, Reports headache(s), Denies increased appetite, Denies poor appetite, Denies snoring, Denies weakness, Denies weight gain and Denies weight loss Eyes Denies loss of vision ENT Denies vertigo, Reports dizziness and Reports headache(s) Card Denies chest pain at rest, Denies chest pain with activity, Denies syncope, Denies leg edema and Denies palpitations Resp Denies snoring GI Denies constipation, Denies heartburn, Denies diarrhea and Denies nausea Denies urinary frequency, Denies urinary incontinence and Denies urinary urgency Musc Denies abnormal gait, Denies numbness and Denies tingling Skin/Breast Denies dry skin and Denies rash Neuro Denies abnormal gait, Denies vertigo, Reports dizziness, Denies syncope, Denies frequent falls, Reports headache(s), Denies lack of coordination, Denies loss of vision, Denies memory loss, Denies numbness, Denies restless legs, Denies seizure-like activity, Denies tingling, Denies paresthesias, Denies tremor(s) and Denies weakness Psych Reports anxiety, Reports depression, Denies auditory hallucinations, Denies memory loss, Denies visual hallucinations and Denies suicidal ideation Endo Reports fatigue and Denies palpitations Physical Exam Const Other: General Appearance:? normal, in no acute distress. Skin:? no rashes, no significant birthmarks. Heart:? S1, S2 normal, no murmurs. Lungs:? clear anteriorly and posteriorly. Extremities:? no edema. Psych:? alert, oriented, cognitive function intact, cooperative with exam. Neuro Other: Mental Status:?Normal attention, orientation, memory and affect.? Cranial Nerves:?Pupils are equal, round and reactive to light. External occular muscles are intact. Visual lawson are full. Face is symmetrical. Facial sensations are normal. Tongue is midline. Palate elevates symmetrically. Shoulder shrugging is normal. Hearing to bedside conversation is normal. Motor Examination:?DTRs 2+ in arms and legs, +b/l Najera signs, plantars are flexor. Sensory Exam:?....? Coordination:?No ataxia,?no titubation.? Gait Exam: Within normal limits. Cerebellar Signs:?Fbwjwj-mf-ukni is okay. Extrapyramidal System:?No tremor, rigidity with normal facial expressions.? Pronator Drift:?Not present.? Involuntary Movements:?No tremors seen.? Speech:?Normal.? Assessment & Plan Assessment & Plan (1) Migraine without aura: Code(s): G43.009 - Migraine without aura, not intractable, without status migrainosus Category: Medical Qualifiers: Status migrainosus presence: without status migrainosus Intractability: not intractable Qualified Code(s): G43.009 - Migraine without aura, not intractable, without status migrainosus Plan: She was having some mild headaches almost every day. She was having trouble remembering to take topiramate and was missing dose about 3x/week. She was educated on the use of medication as migraine prophylaxis and importance of taking medication on regular basis to help control headaches. Discussed strategies to help improve medication compliance. Continue topiramate 50mg 1 tablet at bedtime. Continue sumatriptan 50mg 1 tablet as needed for migraine. Medications: New topiramate 50 mg PO BEDTIME 90 tabs 1RF 90 days Coding Level of Care Code Est Pt Level 4 (25122) Diagnoses Migraine without aura and without status migrainosus, not intractable G43.009 Status migrainosus presence: without status migrainosus Intractability: not intractable
--- OUTSIDE RECORDS SUMMARY | 2025-01-27 12:25 | XMS_ITS | Clinical Summary ---
Author Organization [facility] Address [address] [place] [phone] Phone Care Team Providers Care Home Appliance Technician Name Role Phone JobMarymari Cortés MEDICAL RECORD LIBRARIAN Primary Care Provider [phone] Allergies Active Allergy Reactions Criticality Noted Date Comments Apple 07/07/2021 Fxnorgj-Jzfnbwo-Kbwes-Ritika 07/07 Lavender 07/07/2021 Peanut 06/11/2023 Tree Nut [...] 4:56 AM EDT Emergency [facility] [address] [place] [address] Travis Cui, DO Discharge Disposition: Home or [...] topic Medical Devices Not on file Insurance ([place]) [address] [facility] [place], [place] [address] [facility] [address] [place] [place] [address] [place] [address] [facility] H[facility] INSURANCE Care Teams Home Appliance Technician Relationship Specialty Start Date End Date Maria Fernanda Kaiser NP [address] [place] [address] PCP - General Nurse Practitioner 11/27/24 Additional Source Comments The information contained in this document represents components of the legal health record. It is not the complete legal health record.[facility]
--- OUTSIDE RECORDS SUMMARY | 2025-01-27 12:25 | XMS_ITS | Patient Health Record ---
Author Organization [facility] Address [address] [place] [phone] Care Team Providers Care Electrical Instrument Maker Name Role Phone Chase Guerrero Unavailable [phone] Reason For Referral No Information Plan Of Treatment No Information
== END 2025-01-27 12:01 | disposition home or self-care (01) ==
LOC: HO.HSM 11:35
PROVIDERS: Visit Provider Registered Nurse
DX: G43.009 Migraine without aura, not intractable, without status migrainosus (principal)
CPT/HCPCS: 99214